=== PATIENT | female | born 1935 | race African-American/Black ===

== ENCOUNTER 2016-03-25 12:29 | Emergency (ER) | payer MEDICARE, OTHER ==
[~2016-03-25] VITALS: Ht 152.4 cm; Wt 56.3 kg
[~2016-03-25 12:29] MED LIST: ALBU0.086 INH; HYDR-3580 PO; VERA40TA PO; VITA400C28 PO; WARF2.5T40 PO; Z.0.WALKERFRONT
[2016-03-25 12:32] VITALS: BP 108/56; PULSE 55; RESP 22; TEMP 97.5; O2SAT 95
--- NOTE | 2016-03-25 14:11 | RADRPT ---
EXAM DATE/TIME: 03/25/2016 13:33 [facility] COMPARISON: CHEST SINGLE AP, May 13, 2014, 13:32. INDICATIONS : Patient short of breath and has had no appetite since Tuesday. MEDICAL HISTORY : None. SURGICAL HISTORY : None. ENCOUNTER: Initial ACUITY: 4 - 6 days PAIN SCORE: 0/10 LOCATION: Bilateral chest FINDINGS: PA and lateral views the chest were obtained and demonstrate bilateral hyperinflation, scarring and b ullous change. There are no new confluent infiltrates or effusions. The heart size is at the upper li mits of normal. The soft tissues and bony thorax remain intact. CONCLUSION: 1. Underlying emphysema with bullous change and scarring. 2. No acute cardiopulmonary disease. Orlando Wing MD on March 25, 2016 at 14:08 Board Certified Radiologist. This report was verified electronically.
[2016-03-25 15:01] LABS: AUTOMATED NEUTROPHIL # 1.4 TH/MM3 (1.8-7.7); BASOPHIL % 0.2 % (0.0-2.0); HEMO FLAGS DIFF FINAL; LYMPH % 32.1 % (9.0-44.0); MEAN CORPUSCULAR HEMOGLOBIN 27.5 PG (27.0-34.0); MEAN CORPUSCULAR HGB CONC 31.6 % (32.0-36.0); MONO % 21.8 % (0.0-8.0); NEUT % 45.9 % (16.0-70.0); PLATELET COUNT 195 TH/MM3 (150-450); RED BLOOD COUNT 4.84 MIL/MM3 (4.00-5.30); RED CELL DISTRIBUTION WIDTH 13.2 % (11.6-17.2); WHITE BLOOD COUNT 3.1 TH/MM3 (4.0-11.0)
[2016-03-25 15:20] LABS: BICARBONATE 30.4 MEQ/L (21.0-32.0); POTASSIUM 3.8 MEQ/L (3.5-5.1)
[2016-03-25] MEDS ORDERED: WARF4TAB51 PO (15:27)
[2016-03-25] MEDS ORDERED: WARF-18 PO (15:27)
[2016-03-25] MEDS ORDERED: ALBU6.7H INH (15:27)
[2016-03-25] MEDS ORDERED: VITA400T2 PO (15:27)
[2016-03-25] MEDS ORDERED: VERA40TA PO (15:27)
--- NOTE | 2016-03-25 15:34 | PD ---
HPI Chief Complaint: Respiratory Distress Time Seen by Provider: 15:19 Travel History International Travel<30 days: No Contact w/Intl Traveler<30days: No Traveled to known affect area: No History of Present Illness HPI The patient was seen and examined in the presence of the nurse. This patient complains of generalized weakness. Duration is 5 days. Symptoms severity is moderate. She's had diarrhea for 3 days and nausea but no vomiting or fever. No shortness of breath although she does have COPD and is nebulizer dependent. She has oxygen at home and uses as needed. She is no longer smoking. She does not have abdominal pain or syncope or chest pain. No alleviating factors. PFSH Past Medical History Hx Anticoagulant Therapy: Yes Arthritis: Yes Atrial Fibrillation: Yes Blood Disorders: No Heart Rhythm Problems: Yes Cancer: No Cardiovascular Problems: Yes (COPD) High Cholesterol: Yes COPD: Yes Cerebrovascular Accident: Yes (AFIB) Diabetes: Yes (DIET CONTROLLED) Patient Takes Glucophage: No Diminished Hearing: Yes (fluid in ear) Endocrine: Yes Genitourinary: No Hypertension: Yes Immune Disorder: No Musculoskeletal: Yes Neurologic: Yes (NARCOLEPSY-PAST) Psychiatric: No Reproductive: No Respiratory: Yes Menopausal: Yes Past Surgical History Cholecystectomy: Yes Eye Surgery: Yes (CATARACT) Other Surgery: Yes Social History Alcohol Use: Yes (occ) Tobacco Use: No Substance Use: No Allergies-Medications (Allergen,Severity, Reaction): Coded Allergies: No Known Allergies (Verified , 06/05/15) Reported Meds & Prescriptions Reported Meds & Active Scripts Active Reported Verapamil (Verapamil HCl) Unknown Strength Tab Unknown Dose PO BID Warfarin 2 Mg Tab 2 Mg PO DAILY Warfarin 2.5 Mg Tab 2.5 Mg PO DAILY Vitamin D (Cholecalciferol) 400 Unit Tab 200 Units PO DAILY Proventil Hfa 6.7 GM Inh (Albuterol Sulfate) 90 Mcg/Act Aer 1 Puff INH Q4H PRN Review of Systems General / Constitutional: No: Fever Eyes: No: Visual changes HENT: No: Headaches Cardiovascular: No: Chest Pain or Discomfort Respiratory: No: Shortness of Breath Gastrointestinal: Positive: Nausea, Diarrhea, No: Abdominal Pain Genitourinary: No: Dysuria Musculoskeletal: Positive: Weakness, No: Pain Skin: No Rash Neurologic: Positive: Weakness Psychiatric: No: Depression Endocrine: No: Polydipsia Hematologic/Lymphatic: No: Easy Bruising Physical Exam Narrative GENERAL: Well-nourished, well-developed patient in no apparent distress. SKIN: Warm and dry. HEAD: Atraumatic. Normocephalic. EYES: Pupils equal and round. No scleral icterus. No injection or drainage. ENT: No nasal bleeding or discharge. Mucous membranes pink and moist. NECK: Trachea midline. No JVD. CARDIOVASCULAR: Regular rate and rhythm. No murmur appreciated. RESPIRATORY: No accessory muscle use. Clear to auscultation. Breath sounds equal bilaterally. GASTROINTESTINAL: Abdomen soft, non-tender, nondistended. Hepatic and splenic margins not palpable. MUSCULOSKELETAL: No obvious deformities. No clubbing. No cyanosis. No edema. NEUROLOGICAL: Awake and alert. No obvious cranial nerve deficits. Motor grossly within normal limits. Normal speech. PSYCHIATRIC: Appropriate mood and affect; insight and judgment normal. Data Data Last Documented VS Vital Signs Date Time Temp Pulse Resp B/P Pulse Ox O2 Delivery O2 Flow Rate FiO2 03/25/16 12:32 97.5 55 22 108/56 95 Orders Complete Blood Count With Diff (03/25/16 12:45) Basic Metabolic Panel (Bmp) (03/25/16 12:45) Chest, Pa & Lat (03/25/16 12:45) Oximetry (03/25/16 12:45) Electrocardiogram (03/25/16 12:45) Urinalysis - C+S If Indicated (03/25/16 15:52) Cath For Specimen (03/25/16 17:40) Labs Laboratory Tests Test 03/25/16 13:15 White Blood Count 3.1 TH/MM3 Red Blood Count 4.84 MIL/MM3 Hemoglobin 13.3 GM/DL Hematocrit 42.0 % Mean Corpuscular Volume 87.0 FL Mean Corpuscular Hemoglobin 27.5 PG Mean Corpuscular Hemoglobin 31.6 % Concent Red Cell Distribution Width 13.2 % Platelet Count 195 TH/MM3 Mean Platelet Volume 7.6 FL Neutrophils (%) (Auto) 45.9 % Lymphocytes (%) (Auto) 32.1 % Monocytes (%) (Auto) 21.8 % Eosinophils (%) (Auto) 0.0 % Basophils (%) (Auto) 0.2 % Neutrophils # (Auto) 1.4 TH/MM3 Lymphocytes # (Auto) 1.0 TH/MM3 Monocytes # (Auto) 0.7 TH/MM3 Eosinophils # (Auto) 0.0 TH/MM3 Basophils # (Auto) 0.0 TH/MM3 CBC Comment DIFF FINAL Differential Comment Sodium Level 137 MEQ/L Potassium Level 3.8 MEQ/L Chloride Level 97 MEQ/L Carbon Dioxide Level 30.4 MEQ/L Anion Gap 10 MEQ/L Blood Urea Nitrogen 25 MG/DL Creatinine 0.99 MG/DL Estimat Glomerular Filtration 65 ML/MIN Rate Random Glucose 95 MG/DL Calcium Level 9.4 MG/DL [facility] Medical Decision Making Medical Screen Exam Complete: Yes Emergency Medical Condition: Yes Medical Record Reviewed: Yes Differential Diagnosis Dehydration, electrolyte abnormality, flu syndrome, gastroenteritis Narrative Course I have reviewed the patient's electronic medical record. CBC is normal Metabolic profile shows BUN 25 and creatinine of 0.99 I reviewed her chest x-ray which shows COPD changes but nothing acute or emergent I suggested to place IV and give her a bit of IV fluid. The patient refuses this. She's been drinking fluid without difficulty. I ordered urinalysis which was impossible to obtain. Multiple efforts are made for catheterization and were unsuccessful. Even a tiny pediatric catheter could not be placed and she seems to have a strictured urethra or partial obstruction. She has been urinating. And does not feel like her bladder is full or distended. Recommend primary care and urology follow-up 3 days of Cipro provided just because of multiple urinary catheterization attempts/manipulation Diagnosis Primary Impression: Generalized weakness Additional Instructions: The patient was advised to follow up with their physician and return if they worsen. Med/Other Pt SpecificInfo: Prescription(s) given Scripts Ciprofloxacin (Cipro)500 Mg [id number] Mg PO BID #6 TAB Ref 0 Prov:Jarrod Reyes MD 03/25/16 Disposition: 01 DISCHARGE HOME Condition: Stable Jarrod Reyes MD Mar 25, 2016 15:34
[2016-03-25] MEDS ORDERED: CIPR-9 PO (18:07)
[2016-03-25 18:58] VITALS: BP 120/74
--- NOTE | 2016-03-26 22:55 | EKG ---
Date Performed: 03/25/2016 Time Performed: 15:20:34 PTAGE: 80 years EKG: ATRIAL FIBRILLATION INCOMPLETE RIGHT BUNDLE BRANCH BLOCK NONSPECIFIC ST & T-WAVE ABNORMALIT Y ABNORMAL RHYTHM ECG PREVIOUS TRACING : 06/05/2015 20.51 DOCTOR: Alexandro Arambula Interpretating Date/Time 03/26/2016 22:48:26
== END 2016-03-25 18:59 | disposition home or self-care (01) ==
LOC: NEPA 12:29
DX: R53.1 Weakness (principal); I48.91 Unspecified atrial fibrillation; J44.9 Chronic obstructive pulmonary disease, unspecified; I10 Essential (primary) hypertension; Z79.01 Long term (current) use of anticoagulants
CPT/HCPCS: 71020; 80048; 85025; 93005

== ENCOUNTER 2016-09-05 10:41 | Emergency (ER) | payer MEDICARE ==
[~2016-09-05] VITALS: Ht 152.4 cm; Wt 65.5 kg
[~2016-09-05 10:41] MED LIST changes: -ALBU0.086 INH; +ALBU6.7H INH; +CIPR-9 PO; -HYDR-3580 PO; -VITA400C28 PO; +VITA400T2 PO; +WARF-18 PO; -WARF2.5T40 PO; +WARF4TAB51 PO; -Z.0.WALKERFRONT
[2016-09-05 10:42] VITALS: BP 137/60; PULSE 80; RESP 20; O2SAT 97
[2016-09-05 11:15] VITALS: RESP 16; RESP 18; O2SAT 98
[2016-09-05] MEDS ORDERED: SODIUM CHLORIDE 0.9% FLUSH 10 ML FLUSH IVF PRN (11:30)
[2016-09-05] MEDS ORDERED: ASPIRIN 81 MG CHEW TAB PO ONE (11:30)
[2016-09-05 11:44] LABS: AUTOMATED NEUTROPHIL # 1.9 TH/MM3 (1.8-7.7); BASOPHIL % 0.8 % (0.0-2.0); EOSINOPHIL # 0.1 TH/MM3 (0-0.4); EOSINOPHIL % 1.4 % (0.0-4.0); HEMATOCRIT 40.6 % (35.0-46.0); HEMO FLAGS DIFF FINAL; LYMPH % 43.1 % (9.0-44.0); LYMPHOCYTE # 1.9 TH/MM3 (1.0-4.8); MEAN CELL VOLUME 86.6 FL (80.0-100.0); MEAN CORPUSCULAR HEMOGLOBIN 26.8 PG (27.0-34.0); MEAN CORPUSCULAR HGB CONC 30.9 % (32.0-36.0); MONO % 11.4 % (0.0-8.0); NEUT % 43.3 % (16.0-70.0); PLATELET COUNT 217 TH/MM3 (150-450); RED BLOOD COUNT 4.68 MIL/MM3 (4.00-5.30); RED CELL DISTRIBUTION WIDTH 13.8 % (11.6-17.2); WHITE BLOOD COUNT 4.4 TH/MM3 (4.0-11.0)
--- NOTE | 2016-09-05 11:51 | RADRPT ---
EXAM DATE/TIME: 09/05/2016 11:42 [facility] COMPARISON: CHEST SINGLE AP, May 13, 2014, 13:32. INDICATIONS : Left sided lower chest pain. MEDICAL HISTORY : Chronic obstructive pulmonary disease. Atrial fibrillation. SURGICAL HISTORY : None. ENCOUNTER: Initial ACUITY: 1 day PAIN SCORE: 5/10 LOCATION: Left lower chest FINDINGS: Emphysematous changes are noted with hyperinflation and attenuated lung markings. Mild cardiomegaly. No consolidation or effusion. Osseous structures are intact. CONCLUSION: Emphysematous changes are noted. Edin Gr MD on September 05, 2016 at 11:48 Board Certified Radiologist. This report was verified electronically.
[2016-09-05 11:57] LABS: ANION GAP 6 MEQ/L (5-15); AST (GOT) 17 U/L (15-37); BICARBONATE 28.4 MEQ/L (21.0-32.0); BLOOD UREA NITROGEN 11 MG/DL (7-18); CHLORIDE 106 MEQ/L (98-107); GLOMERULAR FILTRATION RATE 77 ML/MIN (>89); POTASSIUM 3.9 MEQ/L (3.5-5.1); SODIUM (NA) 140 MEQ/L (136-145)
[2016-09-05 11:58] LABS: ALT (GPT) 16 U/L (10-53)
[2016-09-05 12:00] VITALS: BP 142/65; PULSE 62; RESP 16; O2SAT 97
[2016-09-05 12:01] LABS: ALKALINE PHOSPHATASE 90 U/L (45-117); TOTAL BILIRUBIN ADULT 0.3 MG/DL (0.2-1.0)
[2016-09-05 12:07] LABS: INTERNATIONAL NORMALIZED RATIO 2.9 RATIO
--- NOTE | 2016-09-05 12:31 | PD ---
HPI Chief Complaint: Chest Pain Time Seen by Provider: 10:54 Travel History International Travel<30 days: No Contact w/Intl Traveler<30days: No Traveled to known affect area: No History of Present Illness HPI This is an 81-year-old female who has a history of atrial fibrillation who presents to the emergency department with left-sided chest discomfort right under her breast, stabbing, starting yesterday, constant overnight. She denies any associated shortness of breath, nausea or diaphoresis. She denies any fevers or chills. She does have a history of hyperlipidemia and she has family history of heart disease. PFSH Past Medical History Hx Anticoagulant Therapy: Yes Arthritis: Yes Atrial Fibrillation: Yes Blood Disorders: No Heart Rhythm Problems: Yes Cancer: No Cardiovascular Problems: Yes High Cholesterol: Yes COPD: Yes Cerebrovascular Accident: Yes (AFIB) Diabetes: Yes (DIET CONTROLLED) Diminished Hearing: No Endocrine: Yes Genitourinary: No Hypertension: Yes Immune Disorder: No Musculoskeletal: Yes Neurologic: Yes (NARCOLEPSY-PAST) Psychiatric: No Reproductive: No Respiratory: Yes Tetanus Vaccination: < 5 Years Influenza Vaccination: No Menopausal: Yes Past Surgical History Cholecystectomy: Yes Eye Surgery: Yes (CATARACT) Other Surgery: Yes Social History Alcohol Use: No Tobacco Use: No Substance Use: No Allergies-Medications (Allergen,Severity, Reaction): Coded Allergies: No Known Allergies (Verified , 09/05/16) Reported Meds & Prescriptions Reported Meds & Active Scripts Active Cipro (Ciprofloxacin HCl) 500 Mg Tab 500 Mg PO BID Reported Verapamil (Verapamil HCl) Unknown Strength Tab Unknown Dose PO BID Warfarin 2 Mg Tab 2 Mg PO DAILY Warfarin 2.5 Mg Tab 2.5 Mg PO DAILY Vitamin D (Cholecalciferol) 400 Unit Tab 200 Units PO DAILY Proventil Hfa 6.7 GM Inh (Albuterol Sulfate) 90 Mcg/Act Aer 1 Puff INH Q4H PRN Review of Systems Except as stated in HPI: all other systems reviewed are Neg Physical Exam Narrative GENERAL:Well appearing, no acute distress SKIN: Focused skin assessment warm and dry. HEAD: Atraumatic. Normocephalic. EYES: Pupils equal and round. No injection or drainage. ENT: Moist mucous membranes NECK: Trachea midline. CARDIOVASCULAR: Regular rate and rhythm. No murmur appreciated. RESPIRATORY: Clear to auscultation. Breath sounds equal bilaterally. GASTROINTESTINAL: Abdomen soft, non-tender, nondistended. MUSCULOSKELETAL: No obvious deformities. NEUROLOGICAL: Awake and alert. No obvious cranial nerve deficits. Moving all extremities. PSYCHIATRIC: Appropriate mood and affect; insight and judgment normal. Data Data Last Documented VS Vital Signs Date Time Temp Pulse Resp B/P Pulse Ox O2 Delivery O2 Flow Rate FiO2 09/05/16 11:15 18 98 Room Air 09/05/16 10:42 80 137/60 Orders Electrocardiogram (09/05/16 11:30) Complete Blood Count With Diff (09/05/16 11:30) Comprehensive Metabolic Panel (09/05/16 11:30) Troponin I (09/05/16 11:30) Chest, Single Ap (09/05/16 11:30) Ecg Monitoring (09/05/16 11:30) Bilateral Bp Monitoring (09/05/16 11:30) Iv Access Insert/Monitor (09/05/16 11:30) Oximetry (09/05/16 11:30) Oxygen Administration (09/05/16 11:30) Aspirin Chew (Aspirin Chew) (09/05/16 11:30) Sodium Chloride 0.9% Flush (Ns Flush) (09/05/16 11:30) Prothrombin Time / Inr (Pt) (09/05/16 11:30) Labs Laboratory Tests Test 09/05/16 11:34 White Blood Count 4.4 TH/MM3 Red Blood Count 4.68 MIL/MM3 Hemoglobin 12.5 GM/DL Hematocrit 40.6 % Mean Corpuscular Volume 86.6 FL Mean Corpuscular Hemoglobin 26.8 PG Mean Corpuscular Hemoglobin 30.9 % Concent Red Cell Distribution Width 13.8 % Platelet Count 217 TH/MM3 Mean Platelet Volume 7.6 FL Neutrophils (%) (Auto) 43.3 % Lymphocytes (%) (Auto) 43.1 % Monocytes (%) (Auto) 11.4 % Eosinophils (%) (Auto) 1.4 % Basophils (%) (Auto) 0.8 % Neutrophils # (Auto) 1.9 TH/MM3 Lymphocytes # (Auto) 1.9 TH/MM3 Monocytes # (Auto) 0.5 TH/MM3 Eosinophils # (Auto) 0.1 TH/MM3 Basophils # (Auto) 0.0 TH/MM3 CBC Comment DIFF FINAL Differential Comment Prothrombin Time 33.0 SEC Prothromb Time International 2.9 RATIO Ratio Sodium Level 140 MEQ/L Potassium Level 3.9 MEQ/L Chloride Level 106 MEQ/L Carbon Dioxide Level 28.4 MEQ/L Anion Gap 6 MEQ/L Blood Urea Nitrogen 11 MG/DL Creatinine 0.85 MG/DL Estimat Glomerular Filtration 77 ML/MIN Rate Random Glucose 109 MG/DL Calcium Level 9.4 MG/DL Total Bilirubin 0.3 MG/DL Aspartate Amino Transf 17 U/L (AST/SGOT) Alanine Aminotransferase 16 U/L (ALT/SGPT) Alkaline Phosphatase 90 U/L Troponin I LESS THAN 0.02 NG/ML Total Protein 8.0 GM/DL Albumin 3.4 GM/DL MDM Medical Decision Making Medical Screen Exam Complete: Yes Emergency Medical Condition: Yes Interpretation(s) no tachycardia, normotensive no leukocytosis electrolytes within normal limits troponin normal Differential Diagnosis Acute coronary syndrome, costochondritis, pneumonia, pleural effusion Narrative Course This is an 81-year-old female who presents the emergency department with left- sided chest discomfort that started last evening and has been constant throughout the night. She was placed on a monitor and an IV was established. Her EKG is nonischemic but demonstrates atrial fibrillation. Her labs are reassuring including a normal troponin. I had a really long conversation with the patient. She is very articulate and seems very intelligent. We discussed the risks versus benefits of her staying in the hospital. My recommendation is that she stay in the hospital to have serial cardiac enzymes and stress test. Her family history and hyperlipidemia as well as her age place her at higher risk for heart disease. She really doesn't want to stay in the hospital. She had a bad experience last time she was hospitalized in 2014. She really doesn' t think she is having a heart attack. I explained to her that by leaving she is taking some risk that she'll have a heart attack in the next several days and she expressed understanding. She would still prefer to follow-up with Dr. Estevez as an outpatient and will return to the emergency department if her symptoms worsen. Diagnosis Primary Impression: Chest pain Qualified Code: R07.9 - Chest pain, unspecified type Patient Instructions: General Instructions Additional Instructions: If you develop severe chest pain, shortness of breath, sweating, lightheadedness , dizziness or difficulty breathing return to the emergency department immediately. Follow-up with Dr. Estevez as soon as possible for stress test. If your symptoms worsen you should return to the emergency department immediately Med/Other Pt SpecificInfo: No Change to Meds Disposition: 01 DISCHARGE HOME Condition: Stable Dione Coley MD Sep 05, 2016 12:31
--- NOTE | 2016-09-06 14:28 | EKG ---
Date Performed: 09/05/2016 Time Performed: 11:08:58 PTAGE: 81 years EKG: Indeterminate rhythm due to baseline artifact INCOMPLETE RIGHT BUNDLE BRANCH BLOCK NONSPECI FIC ST & T-WAVE ABNORMALITY ABNORMAL RHYTHM ECG PREVIOUS TRACING : 03/25/2016 15.20 Consider ectopic atrial rhythm/junctional escape rhythm Pos sible atrial fibrillation Clinical correlation is recommended DOCTOR: Willy Renteria Interpretating Date/Time 09/06/2016 14:27:06
== END 2016-09-05 12:53 | disposition home or self-care (01) ==
LOC: NEPE 10:41
DX: R07.89 Other chest pain (principal); I48.91 Unspecified atrial fibrillation
CPT/HCPCS: 71010; 80053; 84484; 85025; 85610; 93005; 99285